=== PATIENT | male | born 1985 | race Caucasian/White ===

== ENCOUNTER → 2020-02-05 15:33 | Outpatient (BNVA) | payer OTHER, SELFPAY | PROVIDERS: Visit Provider Internal Medicine | DX: F11.99 Opioid use, unspecified with unspecified opioid-induced disorder (principal) | CPT/HCPCS: 80305 ==

== ENCOUNTER → 2020-04-08 15:40 | Outpatient (BNVA) | payer OTHER, SELFPAY | PROVIDERS: Visit Provider Internal Medicine | DX: Z76.89 Persons encountering health services in other specified circumstances (principal) ==

== ENCOUNTER → 2020-06-03 15:33 | Outpatient (BNVA) | payer OTHER, SELFPAY | PROVIDERS: Visit Provider Internal Medicine | DX: F11.99 Opioid use, unspecified with unspecified opioid-induced disorder (principal) ==

== ENCOUNTER → 2020-07-31 14:57 | Outpatient (BNVA) | payer OTHER, SELFPAY | PROVIDERS: Visit Provider Internal Medicine | DX: Z51.81 Encounter for therapeutic drug level monitoring (principal); F11.90 Opioid use, unspecified, uncomplicated | CPT/HCPCS: 80305 ==

== ENCOUNTER → 2020-09-23 15:25 | Outpatient (BNVA) | payer OTHER, SELFPAY | PROVIDERS: Visit Provider Internal Medicine | DX: Z51.81 Encounter for therapeutic drug level monitoring (principal) | CPT/HCPCS: 80305 ==

== ENCOUNTER → 2020-11-18 15:25 | Outpatient (BNVA) | payer OTHER, SELFPAY | PROVIDERS: Visit Provider Internal Medicine | DX: Z51.81 Encounter for therapeutic drug level monitoring (principal) ==

== ENCOUNTER → 2021-02-17 15:26 | Outpatient (BNVA) | payer OTHER, SELFPAY | PROVIDERS: Visit Provider Internal Medicine | DX: F11.20 Opioid dependence, uncomplicated (principal); Z51.81 Encounter for therapeutic drug level monitoring; Z79.899 Other long term (current) drug therapy | CPT/HCPCS: 80305 ==

== ENCOUNTER → 2021-04-14 15:17 | Outpatient (BNVA) | payer OTHER, SELFPAY | PROVIDERS: Visit Provider Internal Medicine ==

== ENCOUNTER → 2021-06-09 15:14 | Outpatient (BNVA) | payer OTHER, SELFPAY | PROVIDERS: Visit Provider Internal Medicine | DX: Z51.81 Encounter for therapeutic drug level monitoring (principal); F11.20 Opioid dependence, uncomplicated | CPT/HCPCS: 80305 ==

== ENCOUNTER → 2021-08-02 15:24 | Outpatient (BNVA) | payer SELFPAY | PROVIDERS: Visit Provider Internal Medicine | DX: Z51.81 Encounter for therapeutic drug level monitoring (principal); F11.20 Opioid dependence, uncomplicated | CPT/HCPCS: 80305 ==

== ENCOUNTER → 2021-09-27 15:26 | Outpatient (BNVA) | payer OTHER, SELFPAY | PROVIDERS: Visit Provider Internal Medicine | DX: Z51.81 Encounter for therapeutic drug level monitoring (principal); F11.20 Opioid dependence, uncomplicated | CPT/HCPCS: 80305 ==

== ENCOUNTER → 2022-05-02 15:19 | Outpatient (BNVA) | payer OTHER, SELFPAY | PROVIDERS: Visit Provider Nurse Practitioner Psychiatric/Mental Health | DX: F11.20 Opioid dependence, uncomplicated (principal); Z51.81 Encounter for therapeutic drug level monitoring; Z79.899 Other long term (current) drug therapy | CPT/HCPCS: 80305 ==

== ENCOUNTER → 2022-06-28 15:02 | Outpatient (BNVA) | payer OTHER, SELFPAY | PROVIDERS: Visit Provider Nurse Practitioner Psychiatric/Mental Health | DX: Z51.81 Encounter for therapeutic drug level monitoring (principal) ==

== ENCOUNTER → 2022-08-17 15:29 | Outpatient (BNVA) | payer OTHER, SELFPAY | PROVIDERS: PCP Internal Medicine; Visit Provider Nurse Practitioner Psychiatric/Mental Health | DX: F11.20 Opioid dependence, uncomplicated (principal); Z51.81 Encounter for therapeutic drug level monitoring; Z79.899 Other long term (current) drug therapy | CPT/HCPCS: 80305 ==

== ENCOUNTER → 2022-10-05 15:32 | Outpatient (BNVA) | payer OTHER, SELFPAY | PROVIDERS: PCP Internal Medicine; Visit Provider Nurse Practitioner Psychiatric/Mental Health | DX: Z51.81 Encounter for therapeutic drug level monitoring (principal); F11.99 Opioid use, unspecified with unspecified opioid-induced disorder ==

== ENCOUNTER 2022-12-05 14:57 | Outpatient (AMB) | payer OTHER, SELFPAY ==
--- NOTE | 2022-12-05 14:58 | MHC.OFFVIS ---
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 Required: No Allergies No Known Allergies Allergy (Verified 12/05/22 14:59) Medication List - Last Reconciled 12/05/22 by Yane Perez CNP buprenorphine-naloxone 8-2 mg (Suboxone) 1 film sublingual DAILY 30 days dextroamphetamine-amphetamine 20 mg PO sertraline 100 mg PO DAILY Do you need a note to return to daycare/school/sports/work: No HPI MAT Visit HPI Details Patient presents for treatment follow up Currently prescribed Suboxone 8mg Would like to transition to injection Reviewed dosing, side effects, and goals of medication Patient reports he has been prescribed Suboxone for about 10 years COUNTS INCLUDE 234 BEDS AT THE [facility] Medical History (Updated 12/06/22 @ 10:04 by Yane Perez CNP) Opioid use disorder Social History Patient Tobacco Use Status: Never used Tobacco Review of Systems Const Reports as per HPI and Reports no additional complaints Physical Exam Vital Signs: Last Vital Signs Pulse 74 12/05/22 15:08 BP 142/90 H 12/05/22 15:08 Pulse Ox 96 12/05/22 15:08 Oxygen Delivery Method Room Air 12/05/22 15:08 Const General: cooperative, healthy appearing, comfortable, no acute distress, well developed and alert Nutritional Appearance: well nourished Orientation/consciousness: patient oriented x3 Limitations: no limitations Neuro General: patient oriented x3 Psych Appearance: well kempt Mental Status: mental status grossly normal Speech and movement: Normal speech and movement present Affect: normal affect Attitude: cooperative Thought process: Normal thought process present Thought content: Normal thought content present Insight: Good insight present (Psych) Judgement: Good judgement present (Psych) Results AMB 14 Panel Urine Drug Screen Urine Marijuana (THC) Positive Last Edit by Lyudmila Pabon CMA on 12/05/22 15:10 Urine Cocaine Negative Last Edit by Lyudmila Pabon CMA on 12/05/22 15:10 Urine Morphine Negative Last Edit by Lyudmila Pabon CMA on 12/05/22 15:10 Urine Methamphetamine Negative Last Edit by Lyudmila Pabon CMA on 12/05/22 15:10 Urine Amphetamine Negative Last Edit by Lyudmila Pabon CMA on 12/05/22 15:10 Urine Benzodiazepine Negative Last Edit by Lyudmila Pabon CMA on 12/05/22 15:10 Urine Barbiturates Negative Last Edit by Lyudmila Pabon CMA on 12/05/22 15:10 Urine Methadone Negative Last Edit by Lyudmila Pabon CMA on 12/05/22 15:10 Urine Buprenorphine Positive Last Edit by Lyudmila Pabon CMA on 12/05/22 15:10 Urine Tricyclic Antidepressant Negative Last Edit by Lyudmila Pabon CMA on 12/05/22 15:10 Urine MDMA Negative Last Edit by Lyudmila Pabon CMA on 12/05/22 15:10 Urine Oxycodone Negative Last Edit by Lyudmila Pabon CMA on 12/05/22 15:10 Urine Phencyclidine Negative Last Edit by Lyudmila Pabon CMA on 12/05/22 15:10 Urine Propoxyphene Negative Last Edit by Lyudmila Pabon CMA on 12/05/22 15:10 Results Reviewed Results Reviewed: Laboratory Last Values POC Urine Buprenorphine Positive 12/05/22 15:00 POC Urine Morphine Negative 12/05/22 15:00 POC Urine Oxycodone Negative 12/05/22 15:00 POC Urine Methadone Negative 12/05/22 15:00 POC Urine Propoxyphene Negative 12/05/22 15:00 POC Urine Barbiturates Negative 12/05/22 15:00 POC U Tricyclic Antidpr Negative 12/05/22 15:00 POC Urine PCP Negative 12/05/22 15:00 POC Ur Amphetamines Negative 12/05/22 15:00 POC Ur Methamphetamine Negative 12/05/22 15:00 POC Urine MDMA Negative 12/05/22 15:00 POC Ur Benzodiazepine Negative 12/05/22 15:00 POC Urine Cocaine Negative 12/05/22 15:00 POC Ur Marijuana (THC) Positive 12/05/22 15:00 Assessment & Plan Assessment & Plan (1) Opioid use disorder in remission: Code(s): F11.91 - Opioid use, unspecified, in remission Plan: continue suboxone at current dose Sublocade ordered Appt to be scheduled when injection arrives Orders: Orders Liver Panel 12/05/22 Z79.899 - Other retail 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
[2022-12-05 15:08] VITALS: BP 142/90; PULSE 74; O2SAT 96
== END 2022-12-05 16:14 | disposition home or self-care (01) ==
LOC: HO.HCC 14:57
PROVIDERS: PCP Internal Medicine; Visit Provider Nurse Practitioner Psychiatric/Mental Health
DX: F11.91 Opioid use, unspecified, in remission (principal)
CPT/HCPCS: 99213

== ENCOUNTER → 2022-12-05 14:57 | Outpatient (BNVA) | payer OTHER, SELFPAY | PROVIDERS: PCP Internal Medicine; Visit Provider Nurse Practitioner Psychiatric/Mental Health | DX: F11.21 Opioid dependence, in remission (principal); Z51.81 Encounter for therapeutic drug level monitoring; Z79.899 Other long term (current) drug therapy | CPT/HCPCS: 80305 ==

== ENCOUNTER 2023-01-02 15:38 | Outpatient (AMB) | payer OTHER, SELFPAY ==
--- NOTE | 2023-01-02 15:41 | AM.OFFVISNUR ---
Intake Vital Signs 01/02/23 15:51 01/02/23 16:08 BP 170/90 H 142/86 H Blood Pressure Location Lt radial Lt radial Position Sitting Sitting Pulse 89 Pulse Source Pulse Oximeter Pulse Oximetry (%) 94 Oxygen Delivery Method Room Air Comment had tea had tea Intake Visit Reasons: Sub Inj Intake Note: The patient presents for a sub inj Health Lead Required: No Allergies No Known Allergies Allergy (Verified 01/02/23 15:42) Do you need a note to return to daycare/school/sports/work: No Nursing Note Pt presents for MAT appt, first sublocade inj, reports he has been stable on suboxone x 10 years. Pt denies any questions today, reports his recently started sublocade as well so he feels familiar with the process. Pt denies any concerns today, denies cravings. 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 Plan for follow up in 1 month. Results AMB 14 Panel Urine Drug Screen Urine Marijuana (THC) Positive Last Edit by Lyudmila Pabon CMA on 01/02/23 15:57 Urine Cocaine Negative Last Edit by Lyudmila Pabon CMA on 01/02/23 15:57 Urine Morphine Negative Last Edit by Lyudmila Pabon CMA on 01/02/23 15:57 Urine Methamphetamine Negative Last Edit by Lyudmila Pabon CMA on 01/02/23 15:57 Urine Amphetamine Negative Last Edit by Lyudmila Pabon CMA on 01/02/23 15:57 Urine Benzodiazepine Negative Last Edit by Lyudmila Pabon CMA on 01/02/23 15:57 Urine Barbiturates Negative Last Edit by Lyudmila Pabon CMA on 01/02/23 15:57 Urine Methadone Negative Last Edit by Lyudmila Pabon CMA on 01/02/23 15:57 Urine Buprenorphine Positive Last Edit by Lyudmila Pabon CMA on 01/02/23 15:57 Urine Tricyclic Antidepressant Negative Last Edit by Lyudmila Pabon CMA on 01/02/23 15:57 Urine MDMA Negative Last Edit by Lyudmila Pabon CMA on 01/02/23 15:57 Urine Oxycodone Negative Last Edit by Lyudmila Pabon CMA on 01/02/23 15:57 Urine Phencyclidine Negative Last Edit by Lyudmila Pabon CMA on 01/02/23 15:57 Urine Propoxyphene Negative Last Edit by Lyudmila Pabon CMA on 01/02/23 15:57 Coding Assessment & Plan Assessment & Plan Orders: Orders AMB 14 Panel Urine Drug Screen Today Z51.81 - Encounter for therapeutic drug level monitoring AMB Buprenorphine Injection - Patient Supplied Today F11.91 - Opioid use, unspecified, in remission Medications: New Sublocade ER (buprenorphine) 300 mg (1.5 mL) subcut ONCE 1.5 mL 0RF NS F11.91 - Opioid use, unspecified, in remission
[2023-01-02 15:51] VITALS: BP 170/90; PULSE 89; O2SAT 94
[2023-01-02 16:08] VITALS: BP 142/86
== END 2023-01-02 16:27 | disposition home or self-care (01) ==
PROVIDERS: PCP Internal Medicine
DX: Z51.81 Encounter for therapeutic drug level monitoring (principal); F11.91 Opioid use, unspecified, in remission
CPT/HCPCS: Q9992

== ENCOUNTER → 2023-01-02 15:38 | Outpatient (BNVA) | payer OTHER, SELFPAY | PROVIDERS: PCP Internal Medicine; Visit Provider Nurse Practitioner Psychiatric/Mental Health | DX: F11.20 Opioid dependence, uncomplicated (principal) | CPT/HCPCS: 80305; 96372 ==

== ENCOUNTER 2023-01-31 15:20 | Outpatient (AMB) | payer OTHER, SELFPAY ==
--- NOTE | 2023-01-31 15:28 | MHC.OFFVIS ---
Intake Vital Signs 01/31/23 15:35 BP 140/90 H Blood Pressure Location Lt radial Position Sitting Pulse 84 Pulse Source Pulse Oximeter Pulse Oximetry (%) 96 Oxygen Delivery Method Room Air Intake Visit Reasons: Sub Inj Intake Note: the patient presents for a sub inj Family Physician Required: No Allergies No Known Allergies Allergy (Verified 01/31/23 15:28) Do you need a note to return to daycare/school/sports/work: No HPI Sub Inj HPI Details Pt presents for sublocade injection. Reports last month went well, denies concerns regarding first injection. Reports he has been feeling some breakthrough withdrawal symptoms over the past week: tired, chills, sensitive to the weather, just lousy Pt requesting additional films to manage symptoms. States he has been taking his leftover films as needed for withdrawal symptoms 2mg in the morning and 2mg in the evening with good effect. [facility] Medical History (Updated 12/06/22 @ 10:04 by Yane Perez CNP) Opioid use disorder Social History Patient Tobacco Use Status: Never used Tobacco Review of Systems Const All systems reviewed & are unremarkable except as noted in HPI and below Neuro Reports no additional complaints Psych Reports no additional complaints Physical Exam Vital Signs: Last Vital Signs Pulse 84 01/31/23 15:35 BP 140/90 H 01/31/23 15:35 Pulse Ox 96 01/31/23 15:35 Oxygen Delivery Method Room Air 01/31/23 15:35 Const General: cooperative, healthy appearing and no acute distress Nutritional Appearance: well nourished Orientation/consciousness: patient oriented x3 Resp Effort & Inspection: normal respiratory effort Skin General skin exam: no rashes or lesions noted Neuro General: patient oriented x3 Psych Appearance: grossly normal and well kempt Mental Status: mental status grossly normal Speech and movement: Normal speech and movement present Affect: normal affect Attitude: cooperative Thought process: Normal thought process present Office Meds Sublocade 300 mg/1.5 mL solution,extended release subcutaneous syringe Performing Provider: Yane Perez CNP Performing Location: [facility] Administered by: Holly Rico NP on 01/31/23 16:14 Dose Route Admin Location Dispensed Lot Number Expiration Date [facility] 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 Comments: Pt tolerated injection well. Denies questions or concerns about first injection. Educated on signs and symptoms of infection, instructed not to pick at injection site. Encouraged patient to call the [facility] with any questions or concerns. Assessment & Plan Assessment & Plan (1) Opioid use disorder in remission: Code(s): F11.91 - Opioid use, unspecified, in remission Plan: Tolerated injection well. Follow up in 4 weeks Orders: Orders AMB Buprenorphine Injection - Patient Supplied 01/31/23 F11.91 - Opioid use, unspecified, in remission Medications: New buprenorphine-naloxone 4-1 mg (Suboxone) 1 film sublingual DAILY PRN 21 ea 0RF withdrawal Coding Level of Care Code Est Pt Level 3 (48384) Diagnoses Opioid use disorder in remission F11.91
[2023-01-31 15:35] VITALS: BP 140/90; PULSE 84; O2SAT 96
== END 2023-01-31 15:56 | disposition home or self-care (01) ==
PROVIDERS: PCP Internal Medicine; Visit Provider Nurse Practitioner Psychiatric/Mental Health
DX: F11.91 Opioid use, unspecified, in remission (principal)
CPT/HCPCS: 99213

== ENCOUNTER 2023-01-31 15:20 | Outpatient (REF) | payer OTHER, SELFPAY | END 2023-01-31 15:21 | disposition home or self-care (01) | LOC: HO.LAB 15:20 | PROVIDERS: PCP Internal Medicine; Visit Provider Nurse Practitioner Psychiatric/Mental Health | DX: F11.20 Opioid dependence, uncomplicated (principal) | CPT/HCPCS: 36415; 80076; 96372; Q9992 ==

== ENCOUNTER 2023-02-27 15:09 | Outpatient (AMB) | payer OTHER, SELFPAY ==
[2023-02-27 15:21] VITALS: BP 138/82; PULSE 69; O2SAT 97
--- NOTE | 2023-02-27 15:21 | MHC.AM.SUB ---
Intake Vital Signs 02/27/23 15:21 BP 138/82 Blood Pressure Location Rt brachial Position Sitting Pulse 69 Pulse Source Pulse Oximeter Pulse Oximetry (%) 97 Oxygen Delivery Method Room Air Intake Visit Reasons: Sub Inj Allergies No Known Allergies Allergy (Verified 01/31/23 15:28) HPI Sub Inj HPI Details Pt presents for [facility]EL[facility] treatment and follow up. Reports he has been taking some of his films over the past month. States he divides them up and feels as though the dose he gets is close to 1mg. Feels as though this is mental for him vs physical because he has not experienced any withdrawal symptoms. Reports he has been stressed this past month with work. Denies any other concerns, no concerns related to his recovery at this time. [facility] Medical History (Updated 12/06/22 @ 10:04 by Yane Perez CNP) Opioid use disorder Social History Patient Tobacco Use Status: Never used Tobacco Review of Systems Const Reports as per HPI Physical Exam Vital Signs: Last Vital Signs Pulse 69 02/27/23 15:21 BP 138/82 02/27/23 15:21 Pulse Ox 97 02/27/23 15:21 Oxygen Delivery Method Room Air 02/27/23 15:21 Const General: cooperative, healthy appearing and no acute distress Resp Effort & Inspection: normal respiratory effort Skin General skin exam: no rashes or lesions noted Psych Appearance: grossly normal Mental Status: mental status grossly normal Speech and movement: Normal speech and movement present Affect: normal affect Attitude: cooperative Office Meds Sublocade 100 mg/0.5 mL solution,extended release subcutaneous syringe Performing Provider: Holly Rico NP Performing Location: [email or web address] Administered by: Priscilla Matos RN on 02/27/23 15:27 Dose Route Admin Location Dispensed Lot Number Expiration Date [facility] Skein Yarn Drier 100 mg subcut RLQ 0.5 mL [id number] 01/22/24 [address]-9 [employer]. Comments: Assessed previous inj sites, no signs/symptoms of infection, pt reminded to monitor for infection post injection to RLQ, pt verbalized understanding and tolerated injection. Assessment & Plan Assessment & Plan (1) Opioid use disorder in remission: Code(s): F11.91 - Opioid use, unspecified, in remission Plan: Tolerated injection well. Follow up in 4 weeks Encouraged to call clinic with questions/concerns, or if he needs to be seen sooner. Orders: Orders AMB Buprenorphine Injection - Patient Supplied Today F11.99 - Opioid use, unspecified with unspecified opioid-induced disorder Coding Level of Care Code Est Pt Level 3 (34417) Diagnoses Opioid use disorder in remission F11.91
== END 2023-02-27 16:18 | disposition home or self-care (01) ==
PROVIDERS: PCP Internal Medicine; Visit Provider Nurse Practitioner Family
DX: F11.99 Opioid use, unspecified with unspecified opioid-induced disorder (principal); F11.91 Opioid use, unspecified, in remission
CPT/HCPCS: 99213

== ENCOUNTER → 2023-02-27 15:09 | Outpatient (BNVA) | payer OTHER, SELFPAY | PROVIDERS: PCP Internal Medicine; Visit Provider Nurse Practitioner Family | DX: F11.21 Opioid dependence, in remission (principal); Z51.81 Encounter for therapeutic drug level monitoring; Z79.899 Other long term (current) drug therapy | CPT/HCPCS: 96372; Q9992 ==

== ENCOUNTER 2023-03-27 14:57 | Outpatient (AMB) | payer OTHER, SELFPAY ==
--- NOTE | 2023-03-27 15:01 | A.OFFVIS_ITS ---
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 T/w advised him to add a nasal decongestant and increase fluid intake. Has no concerns for recovery [facility] Medical History (Updated 12/06/22 @ 10:04 by Yane Perez CNP) Opioid use disorder Social History Patient Tobacco Use Status: Never used Tobacco Review of Systems Const Reports as per HPI ENT Reports nasal congestion Resp Reports chest congestion and Reports cough Physical Exam Vital Signs: Last Vital Signs Pulse 74 03/27/23 15:18 BP 110/70 03/27/23 15:18 Pulse Ox 98 03/27/23 15:18 Oxygen Delivery Method Room Air 03/27/23 15:18 Const General: cooperative and no acute distress Resp Effort & Inspection: normal respiratory effort Psych Appearance: grossly normal Mental Status: mental status grossly normal Affect: normal affect Attitude: cooperative Thought process: Normal thought process present Thought content: Normal thought content present Insight: Good insight present (Psych) Judgement: Good judgement present (Psych) Office Meds Sublocade 100 mg/0.5 mL solution,extended release subcutaneous syringe Performing Provider: Holly Rico NP Performing Location: [facility] Administered by: Holly Rico NP on 03/27/23 15:43 Dose Route Admin Location Dispensed Lot Number Expiration Date [facility] [employer]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 Comments: Pt tolerated injection well, reviewed signs and symptoms of infection. Encouraged to call [facility] with questions or concerns. Assessment & Plan Assessment & Plan (1) Opioid use disorder in remission: Code(s): F11.91 - Opioid use, unspecified, in remission Plan: Pt tolerating injection Follow up 4 weeks Orders: Orders AMB Buprenorphine Injection - Patient Supplied Today F11.91 - Opioid use, unspecified, in remission Coding Level of Care Code Est Pt Level 3 (50440) Diagnoses Opioid use disorder in remission F11.91
[2023-03-27 15:18] VITALS: BP 110/70; PULSE 74; O2SAT 98
== END 2023-03-27 15:31 | disposition home or self-care (01) ==
PROVIDERS: PCP Internal Medicine; Visit Provider Nurse Practitioner Family
DX: F11.91 Opioid use, unspecified, in remission (principal)
CPT/HCPCS: 99213

== ENCOUNTER → 2023-03-27 14:57 | Outpatient (BNVA) | payer OTHER, SELFPAY | PROVIDERS: PCP Internal Medicine; Visit Provider Nurse Practitioner Family | DX: F11.20 Opioid dependence, uncomplicated (principal) | CPT/HCPCS: 96372; Q9992 ==

== ENCOUNTER 2023-04-27 15:17 | Outpatient (AMB) | payer OTHER, SELFPAY ==
[2023-04-27 15:24] VITALS: BP 155/90; PULSE 63; RESP 19; O2SAT 99
--- NOTE | 2023-04-27 15:24 | AM.OFFVISNUR ---
Intake Vital Signs 04/27/23 15:24 BP 155/90 H Blood Pressure Location Rt brachial Position Sitting Respiration 19 Pulse 63 Pulse Source Pulse Oximeter Pulse Oximetry (%) 99 Oxygen Delivery Method Room Air Intake Visit Reasons: Sub Inj Allergies No Known Allergies Allergy (Verified 03/27/23 15:02) Office Meds Sublocade 100 mg/0.5 mL solution,extended release subcutaneous syringe Performing Provider: Holly Rico NP Performing Location: [facility] Administered by: Guillermina Marshall RN on 04/27/23 15:28 Dose Route Admin Location Dispensed Lot Number Expiration Date [facility] Skip Hoist Engineer 100 mg subcut 0.5 mL [id number] 05/25/24 [address]-8 [email or web address]. Comments: Patient tolerated injection well, no questions, comments or concerns. Patient verbally understands to call us with any symptoms. Coding Assessment & Plan Assessment & Plan Orders: Orders AMB Buprenorphine Injection - Patient Supplied Today F11.99 - Opioid use, unspecified with unspecified opioid-induced disorder
== END 2023-04-27 15:39 | disposition home or self-care (01) ==
PROVIDERS: PCP Internal Medicine
DX: F11.99 Opioid use, unspecified with unspecified opioid-induced disorder (principal)

== ENCOUNTER → 2023-04-27 15:17 | Outpatient (BNVA) | payer OTHER, SELFPAY | PROVIDERS: PCP Internal Medicine | DX: F11.20 Opioid dependence, uncomplicated (principal) | CPT/HCPCS: 96372; Q9992 ==

== ENCOUNTER 2023-05-23 15:06 | Outpatient (AMB) | payer OTHER, SELFPAY ==
--- NOTE | 2023-05-23 15:09 | MHC.AM.SUB ---
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 Allergies No Known Allergies Allergy (Verified 05/23/23 15:13) Do you need a note to return to daycare/school/sports/work: No HPI Sub Inj HPI Details Pt presents for monthly sublocade injection Reports he was sick with a cold this past month that he is now getting over He has no concerns at this time Denies concerns with injection, denies side effects [facility] Medical History (Updated 12/06/22 @ 10:04 by Yane Perez CNP) Opioid use disorder Social History Patient Tobacco Use Status: Never used Tobacco Review of Systems Const Reports as per HPI Physical Exam Vital Signs: Last Vital Signs Pulse 92 05/23/23 15:13 BP 132/84 05/23/23 15:13 Pulse Ox 97 05/23/23 15:13 Oxygen Delivery Method Room Air 05/23/23 15:13 Const General: cooperative and no acute distress Resp Effort & Inspection: normal respiratory effort and able to speak in complete sentences Skin General skin exam: no rashes or lesions noted Psych Appearance: grossly normal and well kempt Mental Status: mental status grossly normal Speech and movement: Normal speech and movement present Affect: normal affect Attitude: cooperative Office Meds Sublocade 100 mg/0.5 mL solution,extended release subcutaneous syringe Performing Provider: Holly Rico NP Performing Location: [facility] Administered by: Holly Rico NP on 05/23/23 17:33 Dose Route Admin Location Dispensed Lot Number Expiration Date [facility] Shift Stacker 100 mg subcut LLQ 0.5 mL [id number] 06/21/24 [address]-6 [employer]. Comments: Pt tolerated injection well. Reviewed signs and symptoms of infection, instructed him to call [facility] with any questions or concerns. Assessment & Plan Assessment & Plan (1) Opioid use disorder: Comment: Sustained recovery. Content with current suboxone dose He has no complaints Code(s): F11.99 - Opioid use, unspecified with unspecified opioid-induced disorder (2) Opioid use disorder in remission: Code(s): F11.91 - Opioid use, unspecified, in remission Plan Pt tolerating injection Follow up 4 weeks Orders: Orders AMB Buprenorphine Injection - Patient Supplied 05/23/23 F11.99 - Opioid use, unspecified with unspecified opioid-induced disorder Coding Level of Care Code Est Pt Level 3 (89512) Diagnoses Opioid use disorder F11.99 Opioid use disorder in remission F11.91
[2023-05-23 15:13] VITALS: BP 132/84; PULSE 92; O2SAT 97
== END 2023-05-23 15:32 | disposition home or self-care (01) ==
PROVIDERS: PCP Nurse Practitioner Family
DX: F11.99 Opioid use, unspecified with unspecified opioid-induced disorder (principal); F11.91 Opioid use, unspecified, in remission
CPT/HCPCS: 99213

== ENCOUNTER → 2023-05-23 15:06 | Outpatient (BNVA) | payer OTHER, SELFPAY | PROVIDERS: PCP Nurse Practitioner Family | DX: F11.99 Opioid use, unspecified with unspecified opioid-induced disorder (principal) | CPT/HCPCS: 96372; Q9992 ==

== ENCOUNTER 2023-06-20 15:22 | Outpatient (AMB) | payer OTHER, SELFPAY ==
--- NOTE | 2023-06-20 15:24 | AM.OFFVISNUR ---
Intake Vital Signs 06/20/23 15:28 BP 120/65 Blood Pressure Location Rt radial Position Sitting Respiration 19 Pulse 65 Pulse Oximetry (%) 96 Intake Visit Reasons: Sub Inj Allergies No Known Allergies Allergy (Verified 05/23/23 15:13) Nursing Note Patient here for sublocade injection, in good spirits, smiling, states no cravings, did say towards the end of the month he can tell he is a little more tired . He will call if it gets worse, and will see provider next visit. Office Meds Sublocade 100 mg/0.5 mL solution,extended release subcutaneous syringe Performing Provider: Yane Perez CNP Performing Location: [facility] Administered by: Guillermina Marshall RN on 06/20/23 15:30 Dose Route Admin Location Dispensed Lot Number Expiration Date [facility] Material Worker 100 mg subcut 0.5 mL [id number] 05/25/24 [address]-7 [employer] Comments: Patient tolerated injection well with no stated or noted side effects. Verbally agrees to call [facility] with any questions or concerns. Coding Assessment & Plan Assessment & Plan Orders: Orders AMB Buprenorphine Injection - Patient Supplied Today F11.91 - Opioid use, unspecified, in remission
[2023-06-20 15:28] VITALS: BP 120/65; PULSE 65; RESP 19; O2SAT 96
== END 2023-06-20 15:48 | disposition home or self-care (01) ==
PROVIDERS: PCP Nurse Practitioner Family
DX: F11.91 Opioid use, unspecified, in remission (principal)

== ENCOUNTER → 2023-06-20 15:22 | Outpatient (BNVA) | payer OTHER, SELFPAY | PROVIDERS: PCP Nurse Practitioner Family | DX: F11.90 Opioid use, unspecified, uncomplicated (principal) | CPT/HCPCS: 96372; Q9992 ==

== ENCOUNTER 2023-07-18 15:09 | Outpatient (AMB) | payer OTHER, SELFPAY ==
--- NOTE | 2023-07-18 15:12 | A.OFFVISCC_ITS ---
Intake Vital Signs 07/18/23 15:18 BP 134/86 Blood Pressure Location Lt radial Position Sitting Pulse 84 Pulse Source Pulse Oximeter Pulse Oximetry (%) 96 Oxygen Delivery Method Room Air Intake Visit Reasons: MAT visit/ Sub Inj Intake Note: The patient presents for a sub inj Irrigation Technician Required: No Allergies No Known Allergies Allergy (Verified 07/18/23 15:13) Do you need a note to return to daycare/school/sports/work: No HPI MAT visit/ Sub Inj HPI Details Patient presents for sublocade injection No concerns about recovery- would like to begin tapering by pushing appointments further apart from eachother Feels as though his sertraline is not as effective as it could be, experiencing increase in anxiety States he hates his job and has been looking for a new job which he attributes some of his anxiety and depression to [facility] Medical History (Updated 12/06/22 @ 10:04 by Yane Perez CNP) Opioid use disorder Social History Patient Tobacco Use Status: Never used Tobacco Review of Systems Const Reports as per HPI Physical Exam Vital Signs: Last Vital Signs Pulse 84 07/18/23 15:18 BP 134/86 07/18/23 15:18 Pulse Ox 96 07/18/23 15:18 Oxygen Delivery Method Room Air 07/18/23 15:18 Const General: cooperative and comfortable Resp Effort & Inspection: normal respiratory effort Psych Appearance: grossly normal Mental Status: mental status grossly normal Speech and movement: Normal speech and movement present Affect: normal affect Attitude: cooperative Office Meds Sublocade 100 mg/0.5 mL solution,extended release subcutaneous syringe Performing Provider: Holly Rico NP Performing Location: [facility] Administered by: Guillermina Marshall RN on 07/18/23 15:20 Dose Route Admin Location Dispensed Lot Number Expiration Date [facility] 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 Comments: Patient denies any concerns regarding administration, no side effects noted or stated. Pt agrees to call [facility] with any questions or concerns. Results AMB 14 Panel Urine Drug Screen Urine Marijuana (THC) Positive Last Edit by Lyudmila Pabon CMA on 07/18/23 15:19 Urine Cocaine Negative Last Edit by Lyudmila Pabon CMA on 07/18/23 15:19 Urine Morphine Negative Last Edit by Lyudmila Pabon CMA on 07/18/23 15:19 Urine Methamphetamine Negative Last Edit by Lyudmila Pabon CMA on 07/18/23 15:19 Urine Amphetamine Negative Last Edit by Lyudmila Pabon CMA on 07/18/23 15:1 9 Urine Benzodiazepine Negative Last Edit by Lyudmila Pabon CMA on 07/18/23 15:19 Urine Barbiturates Negative Last Edit by Lyudmila Pabon CMA on 07/18/23 15: 19 Urine Methadone Negative Last Edit by Lyudmila Pabon CMA on 07/18/23 15:19 Urine Buprenorphine Positive Last Edit by Lyudmila Pabon CMA on 07/18/23 15 :19 Urine Tricyclic Antidepressant Negative Last Edit by Lyudmila Pabon CMA on 07/18/23 15:19 Urine MDMA Negative Last Edit by Lyudmila Pabon CMA on 07/18/23 15:19 Urine Oxycodone Negative Last Edit by Lyudmila Pabon CMA on 07/18/23 15:19 Urine Phencyclidine Negative Last Edit by Lyudmila Pabon CMA on 07/18/23 15 :19 Urine Propoxyphene Negative Last Edit by Lyudmila Pabon CMA on 07/18/23 15: 19 Results Reviewed Results Reviewed: Laboratory Last Values POC Urine Buprenorphine Positive 07/18/23 15:13 POC Urine Morphine Negative 07/18/23 15:13 POC Urine Oxycodone Negative 07/18/23 15:13 POC Urine Methadone Negative 07/18/23 15:13 POC Urine Propoxyphene Negative 07/18/23 15:13 POC Urine Barbiturates Negative 07/18/23 15:13 POC U Tricyclic Antidpr Negative 07/18/23 15:13 POC Urine PCP Negative 07/18/23 15:13 POC Ur Amphetamines Negative 07/18/23 15:13 POC Ur Methamphetamine Negative 07/18/23 15:13 POC Urine MDMA Negative 07/18/23 15:13 POC Ur Benzodiazepine Negative 07/18/23 15:13 POC Urine Cocaine Negative 07/18/23 15:13 POC Ur Marijuana (THC) Positive 07/18/23 15:13 Assessment & Plan Assessment & Plan (1) Opioid use disorder in remission: Code(s): F11. - Opioid use, unspecified, in remission Plan: -Discussed trialing clonidine to address anxiety symptoms, med education provided -Patient to call and check in one week, sooner if needed -Follow up 6 weeks for next injection Orders: Orders AMB 14 Panel Urine Drug Screen Today Z51.81 - Encounter for therapeutic drug level monitoring AMB Buprenorphine Injection - Patient Supplied Today F11 - Opioid use, unsp ecified, in remission Medications: New clonidine HCl 0.1 mg PO BID 14 tabs 0RF Coding Level of Care Code Est Pt Level 3 (57112) Diagnoses Opioid use disorder in remission F1
[2023-07-18 15:18] VITALS: BP 134/86; PULSE 84; O2SAT 96
== END 2023-07-18 15:54 | disposition home or self-care (01) ==
PROVIDERS: PCP Nurse Practitioner Family; Visit Provider Nurse Practitioner Family
DX: F11.91 Opioid use, unspecified, in remission (principal); Z51.81 Encounter for therapeutic drug level monitoring
CPT/HCPCS: 99213

== ENCOUNTER → 2023-07-18 15:09 | Outpatient (BNVA) | payer OTHER, SELFPAY | PROVIDERS: PCP Nurse Practitioner Family; Visit Provider Nurse Practitioner Family | DX: F11.91 Opioid use, unspecified, in remission (principal) | CPT/HCPCS: 80305; 96372; Q9992 ==

== ENCOUNTER 2023-09-21 15:25 | Outpatient (AMB) | payer OTHER, SELFPAY ==
--- NOTE | 2023-09-21 15:23 | MHC.AM.SUB ---
Vital Signs 09/21/23 15:24 BP 142/80 H Blood Pressure Location Rt brachial Position Sitting Pulse 81 Pulse Source Pulse Oximeter Pulse Oximetry (%) 98 Oxygen Delivery Method Room Air Intake Visit Reasons: MAT Allergies No Known Allergies Allergy (Verified 07/18/23 15:13) HPI HPI MAT: Details: Patient presents for OUD treatment and follow up Last sublocade injection was end of June He does not wish to continue with the injections, feels as though he is doing well Denies any withdrawal symptoms or cravings, feeling positive about his progress Reports mood has been good , feels that the zoloft and wellbutrin have been helpful for him States sleep is good HPI Comments Details: Patient presents for MAT visit [facility] Medical History (Updated 12/06/22 @ 10:04 by Yane Perez CNP) Opioid use disorder Social History Patient Tobacco Use Status: Never used Tobacco Review of Systems Const Reports as per HPI Physical Exam Vital Signs: Last Vital Signs Pulse 81 09/21/23 15:24 BP 142/80 H 09/21/23 15:24 Pulse Ox 98 09/21/23 15:24 Oxygen Delivery Method Room Air 09/21/23 15:24 Const General: cooperative and no acute distress Resp Effort & Inspection: normal respiratory effort and able to speak in complete sentences Psych Appearance: grossly normal Mental Status: mental status grossly normal Speech and movement: Normal speech and movement present Affect: normal affect Attitude: cooperative Thought process: Normal thought process present Assessment & Plan Assessment & Plan (1) Opioid use disorder in remission: Code(s): F11.91 - Opioid use, unspecified, in remission Category: Medical Plan: -Reviewed with him to call [facility] with questions or concerns -Reviewed with him he is at high risk for overdose should he relapse -Follow up telehealth 2 months
[2023-09-21 15:24] VITALS: BP 142/80; PULSE 81; O2SAT 98
== END 2023-09-21 15:39 | disposition home or self-care (01) ==
PROVIDERS: PCP Nurse Practitioner Family; Visit Provider Nurse Practitioner Family
DX: F11.91 Opioid use, unspecified, in remission (principal)
CPT/HCPCS: 99213

== ENCOUNTER → 2023-09-21 15:25 | Outpatient (BNVA) | payer OTHER, SELFPAY | PROVIDERS: PCP Nurse Practitioner Family; Visit Provider Nurse Practitioner Family ==